=== PATIENT | male | born 1950 | race Caucasian/White ===

== ENCOUNTER → 2017-11-24 11:30 | Outpatient (CLI) | payer MEDICARE, SELFPAY ==
--- NOTE | 2017-11-24 11:30 | LES_PTH ---
PATIENT: CHUCK GANT LOC: [facility] U#:[id number] AGE/SX: 74/M ROOM: RE11/24/[address]: Dr. Jaime Marsh MD : 1950 BED: DIS: SPEC #: [id number] RECD: 11/24/17 14:25 STATUS: DAXA YECENIA #: [id number] [place]: 11/24/17 11:[address]: Jaime Marsh DEPT: SURGICAL PATHOLOGY RECD BY: Abraham Cárdenas Tissues: A - Skin of eyelid, NOS B - Skin of eyelid, NOS Procedures: Surgery Specimen Level IV HEADER OPERATION: Removal of papilloma left lower lid PRE-OP DIAGNOSIS: Papilloma TISSUE SUBMITTED: A - Left lower lid, B - Right upper eyelid MICROSCOPIC DIAGNOSIS A. Left lower lid lesion, biopsy: Squamous papilloma. B. Right upper eyelid lesion, biopsy: Fragments of squamous papilloma. LUKE:alondra 11/25/17 MICROSCOPIC DESCRIPTION Slides are reviewed. GROSS DESCRIPTION A - Received in fixative is one container labeled with the patient's name and designated left lower lid. The specimen consists of a piece of barrera-brown skin measuring 0.2 x 0.1 x 0.1 cm. The specimen is totally submitted in one cassette. B - Received in fixative is one container labeled with the patient's name and designated right upper lid. The specimen consists of three fragments of barrera soft tissue measuring in aggregate 0.3 x 0.3 x 0.1 cm. The entire specimen is submitted in one cassette. / LUKE:alondra 11/24/17 TC:1 CPT: 72632 x2
== END ==
PROVIDERS: Referring Provider Ophthalmology; Visit Provider Ophthalmology
DX: D23.12 Other benign neoplasm of skin of left eyelid, including canthus (principal); D23.11 Other benign neoplasm of skin of right eyelid, including canthus
CPT/HCPCS: 88305

== ENCOUNTER → 2017-12-14 09:18 | Outpatient (CLI) | payer MEDICARE, SELFPAY ==
--- NOTE | 2017-12-14 09:22 | NM_ITS ---
CLINICAL: 67-year-old male with reported history of painful right knee arthroplasty operated approximately 10 years previous. LIMITED 99m Tc MDP THREE PHASE BONE SCINTIGRAPHY COMPARISON: None available FINDINGS: Following the intravenous administration of 24.4 mCi of 99m Tc MDP, three-phase bone acquisitions of the knee articulations reveal: 1. The flow and immediate static blood pool acquisitions demonstrate relatively symmetric arterial phase distribution of the radiopharmaceutical. There is subtle venous hyperemia noted in the medial compartment of the left knee. 2. Delayed images depict persistent increased radiopharmaceutical concentration identified in the medial compartment of the left knee articulation correlating with the blood pool changes. 3. Mild enhanced uptake is defined in the distal tibial component of the symptomatic right knee prosthesis on late projections. 4. An increase in tracer uptake is defined in the patellofemoral compartments of both knees. 5. The remaining limited skeletal structures are scintigraphically unremarkable. NM/Bone Scan Three Phase IMPRESSION: 1. The increased radiopharmaceutical concentration identified in the distal tibial component of the painful right knee prosthesis may represent minimal loosening. If an infectious etiology is a diagnostic consideration, correlation with labeled leukocyte imaging is recommended. 2. Facilitated uptake noted in the medial compartment of the left knee is most consistent with significant degenerative arthritis. Increased tracer concentration noted in the patellofemoral compartments of both knees is most consistent with degenerative arthrosis. Electronically Signed: Abraham Pastor DO at 22:54 EDT Tel , Service support ,
== END ==
PROVIDERS: Family Provider Family Medicine; PCP Family Medicine; Referring Provider Orthopaedic Surgery; Visit Provider Orthopaedic Surgery
DX: M17.12 Unilateral primary osteoarthritis, left knee (principal)
CPT/HCPCS: 78315